=== PATIENT | male | born 1985 | race Caucasian/White ===

== ENCOUNTER 2020-04-05 08:41 | Emergency (ER) | payer SELFPAY ==
[~2020-04-05] VITALS: Ht 172.7 cm; Wt 70.8 kg
[2020-04-05 08:42] VITALS: BP 117/72; Ht 172.7 cm; Wt 70.8 kg
== END 2020-04-05 09:41 | disposition home or self-care (01) ==
LOC: ED 08:41
DX: U07.1 COVID-19 (principal)
CPT/HCPCS: U0003

== ENCOUNTER 2020-04-13 13:12 | Emergency (ER) | payer SELFPAY ==
[~2020-04-13] VITALS: Ht 172.7 cm; Wt 79.4 kg
[2020-04-13 13:14] VITALS: Ht 172.7 cm; Wt 79.4 kg
[2020-04-13 14:22] VITALS: BP 123/77
== END 2020-04-13 14:42 | disposition home or self-care (01) ==
LOC: ED 13:12
DX: U07.1 COVID-19 (principal); R10.9 Unspecified abdominal pain
CPT/HCPCS: U0003